=== PATIENT | female | born 2000 | race Caucasian/White ===

== ENCOUNTER 2020-05-20 16:58 | Emergency (ER) | payer OTHER, MEDICAID ==
[~2020-05-20] VITALS: Ht 157.5 cm; Wt 45.5 kg
[2020-05-20 17:10] VITALS: BP 99/56
== END 2020-05-20 18:24 | disposition home or self-care (01) ==
LOC: ER 16:59
DX: R51 Headache (principal); F17.200 Nicotine dependence, unspecified, uncomplicated; Z02.89 Encounter for other administrative examinations
CPT/HCPCS: 99281

== ENCOUNTER 2020-06-19 15:22 | Inpatient (IN) | payer MEDICAID ==
[~2020-06-19] VITALS: Ht 157.5 cm; Wt 54.5 kg
[2020-06-19 16:01] LABS: CLARITY,URINE CLOUDY (Clear); COLOR,URINE YELLOW (Yellow); GLUCOSE, URINE NEGATIVE (Neg); KETONES,URINE TRACE mg/dl (Neg); LEUKOCYTE ESTERASE ,URINE NEGATIVE (Neg); NITRITES, URINE NEGATIVE (Neg); OCCULT BLOOD,URINE NEGATIVE (Neg); PROTEIN,URINE TRACE mg/dl (Neg)
[2020-06-19 16:02] LABS: UA COLLECTION TYPE CLN CATCH MIDSTREAM; URINE HCG NEGATIVE (NEG)
[2020-06-19 16:08] LABS: MUCUS STRANDS MANY /LPF (Neg)
[2020-06-19 16:09] LABS: SQUAMOUS EPITHELIAL CELL,UR MODERATE /LPF (FEW)
[2020-06-19 16:10] LABS: BACTERIA,URINE FEW /HPF (Neg); RBC,URINE 0-2 /HPF (0-2); TRIPLE PHOSPHATE CRYST 2+ /HPF (NEGATIVE); WBC,URINE 0-4 /HPF (0-4)
[2020-06-19] MEDS ORDERED: ondansetron/PF 4mg/2ml inj IV ONE (16:20)
[2020-06-19] MEDS ORDERED: morphine 4 MG/ML inj SYRINge IV PRN (16:20)
[2020-06-19] MEDS ORDERED: normal saline 1000ML IV soln IVB ONE (16:20)
[2020-06-19 16:36] LABS: BASOPHILS # (AUTO) 0.1 X10'3 (0-0.2); BASOPHILS % (AUTO) 0.8 % (0-1); EOSINOPHILS # (AUTO) 0.2 X10'3 (0-0.9); EOSINOPHILS % (AUTO) 2.2 % (0-6); HEMATOCRIT 37.2 % (35.0-45.0); HEMOGLOBIN 12.5 g/dl (12.0-16.0); LYMPHOCYTES % (AUTO) 43.8 % (21-51); MEAN CORPUSCULAR HEMOGLOBIN 30.8 PG (27.0-31.0); MEAN CORPUSCULAR HGB CONC 33.6 g/dL (33.0-36.5); MEAN CORPUSCULAR VOLUME 91.8 FL (78-98); MEAN PLATELET VOLUME 7.2 FL (7.4-10.4); MONOCYTES # (AUTO) 0.7 X10'3 (0-0.9); MONOCYTES % (AUTO) 7.6 % (2-12); NEUTROPHILS # (AUTO) 4.1 X10'3 (1.8-7.7); NEUTROPHILS % (AUTO) 45.6 % (42-75); PLATELET COUNT 256 X10'3 (140-440); RED BLOOD COUNT 4.05 X10'6 (4.20-5.60); RED CELL DISTRIBUTION WIDTH 13.2 % (11.5-14.5)
[2020-06-19 16:48] LABS: ALANINE AMINOTRANSFERASE 39 U/L (12-78); ALBUMIN 3.4 G/DL (3.4-5.0); ALBUMIN/GLOBULIN RATIO 0.9 (1.1-1.5); ALKALINE PHOSPHATASE 74 IU/L (20-180); ANION GAP 6 (8-16); ASPARTATE AMINO TRANSFERASE 25 U/L (10-37); BILIRUBIN,TOTAL 0.4 MG/DL (0.1-1.0); BLOOD UREA NITROGEN 10 MG/DL (7-18); BUN/CREATININE RATIO 10.4 (6.6-38.0); CALCIUM 8.4 MG/DL (8.5-10.1); CHLORIDE 107 MMOL/L (99-107); CREATININE 0.96 MG/DL (0.40-0.90); LIPASE 120 U/L (73-393); POTASSIUM 4.2 MMOL/L (3.5-5.1); SODIUM 141 MMOL/L (135-145); TOTAL CARBON DIOXIDE 27.9 MMOL/L (24-32); TOTAL PROTEIN 7.2 G/DL (6.4-8.2); eGFR 74 ML/MIN
[2020-06-19 16:57] LABS: GLUCOSE 96 MG/DL (70-104)
[2020-06-19] MEDS ORDERED: NO HOME MEDS (20:58)
--- NOTE | 2020-06-19 20:58 | NUR ---
plan of car updated pt resting comfortably on her right side.
--- NOTE | 2020-06-19 22:06 | NUR ---
Pt mother called for update . pt gave permission to update her mother .pt mother to bring in her phone cord .
[2020-06-19] MEDS ORDERED: piperacillin/tazo 3.375gm/50ml 50 ML IV ONE (22:30)
[2020-06-19] MEDS ORDERED: morphine 2 MG/ML inj. syringe IV PRN ×2 (22:50)
[2020-06-19] MEDS ORDERED: ondansetron/PF 4mg/2ml inj IV PRN (22:50)
[2020-06-19] MEDS ORDERED: potassium Cl 20 mEq SR tablet PO PRN ×2 (22:50)
[2020-06-19] MEDS ORDERED: potassium CL 10mEq/100ml bag 100 ML IV PRN ×2 (22:50)
[2020-06-19] MEDS: normal saline 1000ml 1,000 ML IV SCH (23:16)
[2020-06-20 00:25] VITALS: BP 98/58
--- NOTE | 2020-06-20 00:25 | NUR ---
PATIENT ADMITTED TO ROOM 340B FROM ER FOR POSSIBLE APPENDICITIS. PLACED COMFORTABLE IN BED. VITAL SIGNS TAKEN AND RECORDED.
[2020-06-20 05:19] LABS: ALANINE AMINOTRANSFERASE 39 U/L (12-78); ALBUMIN 2.9 G/DL (3.4-5.0); ALBUMIN/GLOBULIN RATIO 0.9 (1.1-1.5); ALKALINE PHOSPHATASE 67 IU/L (20-180); ANION GAP 8 (8-16); ASPARTATE AMINO TRANSFERASE 26 U/L (10-37); BILIRUBIN,TOTAL 0.4 MG/DL (0.1-1.0); BLOOD UREA NITROGEN 8 MG/DL (7-18); BUN/CREATININE RATIO 9.5 (6.6-38.0); CALCIUM 7.9 MG/DL (8.5-10.1); CHLORIDE 108 MMOL/L (99-107); CREATININE 0.84 MG/DL (0.40-0.90); GLUCOSE 83 MG/DL (70-104); POTASSIUM 3.8 MMOL/L (3.5-5.1); SODIUM 140 MMOL/L (135-145); TOTAL CARBON DIOXIDE 23.9 MMOL/L (24-32); TOTAL PROTEIN 6.3 G/DL (6.4-8.2); eGFR 86 ML/MIN
[2020-06-20 05:31] LABS: BASOPHILS % (AUTO) 0.5 % (0-1); EOSINOPHILS # (AUTO) 0.4 X10'3 (0-0.9); EOSINOPHILS % (AUTO) 4.8 % (0-6); HEMATOCRIT 35.3 % (35.0-45.0); HEMOGLOBIN 11.8 g/dl (12.0-16.0); LYMPHOCYTES # (AUTO) 3.7 X10'3 (1.1-4.8); LYMPHOCYTES % (AUTO) 48.3 % (21-51); MEAN CORPUSCULAR HGB CONC 33.6 g/dL (33.0-36.5); MEAN CORPUSCULAR VOLUME 92.3 FL (78-98); MEAN PLATELET VOLUME 7.7 FL (7.4-10.4); MONOCYTES # (AUTO) 0.5 X10'3 (0-0.9); MONOCYTES % (AUTO) 6.8 % (2-12); NEUTROPHILS # (AUTO) 3.1 X10'3 (1.8-7.7); NEUTROPHILS % (AUTO) 39.6 % (42-75); PLATELET COUNT 209 X10'3 (140-440); RED BLOOD COUNT 3.82 X10'6 (4.20-5.60); RED CELL DISTRIBUTION WIDTH 12.9 % (11.5-14.5); WHITE BLOOD COUNT 7.8 X10'3 (4.5-11.0)
[2020-06-20] MEDS: piperacillin/tazo 3.375gm/50ml 50 ML IV SCH ×2 (05:32→14:02)
--- NOTE | 2020-06-20 06:30 | NUR ---
Problems reprioritized. Patient report given, questions answered & plan of care reviewed with AZAM LOWE.
--- NOTE | 2020-06-20 06:46 | NUR ---
Patient in room [facility]. I have received report from CHRISSY Campos and had the opportunity to ask questions and assume patient care.
[2020-06-20 08:00] VITALS: BP 106/56
[2020-06-20] MEDS ORDERED: K and/or MAG REPLACEMENT MC SCH (08:00)
[2020-06-20] MEDS: normal saline 1000ml 1,000 ML IV SCH ×2 (08:30→16:28)
[2020-06-20 11:00] VITALS: BP 108/57
--- NOTE | 2020-06-20 11:04 | NUR ---
Dr Gaytan in to see pt. new order for regular diet and MOM. Monitor pt change of condition for further intervention.
[2020-06-20] MEDS ORDERED: magnesium hydroxide 30ml (MOM) UD suspension PO ONE (11:05)
--- NOTE | 2020-06-20 13:18 | NUR ---
Pt on the phone, agitated, stating she wants to go home. Refused lunch. charge nurse spoke to pt. Discussed with pt consequences of leaving hospital AMA. Hospitalist and surgeon aware.
--- NOTE | 2020-06-20 17:58 | NUR ---
spoke to Dr Vidal and Dr Gaytan, they both want pt to have Abd/pelvic CT scan prior discharge.
--- NOTE | 2020-06-20 18:15 | NUR ---
Problems reprioritized. Patient report given, questions answered & plan of care reviewed with CHRISSY Campos. Pt signed AMA form. IV cath was removed. aware.
--- NOTE | 2020-06-20 18:25 | NUR ---
Patient in room [facility]. I have received report from AZAM RN and had the opportunity to ask questions and assume patient care. PATIENT WAS GETTING READY TO LEAVE AMA, PAPER SIGNED, AWARE AND PIV OUT ALL DONE BY AM RN.
--- NOTE | 2020-06-20 19:09 | NUR ---
Pt left the [facility] around 1830.
[2020-06-20] MEDS ORDERED: diatr meglu/diatrizoate 30ml oral sol.-(3 dose) bottle PO SCH (21:00)
== END 2020-06-20 18:00 | disposition left against medical advice (07) | DRG 254 ==
LOC: ER 15:23 → ED HOLD 22:46 → SUR 3N 06-20 00:20
PROVIDERS: ADMIT Internal Medicine; ATTEND Family Medicine
DX: K37 Unspecified appendicitis (principal); F17.200 Nicotine dependence, unspecified, uncomplicated; K52.9 Noninfective gastroenteritis and colitis, unspecified; K59.00 Constipation, unspecified; Z53.29 Procedure and treatment not carried out because of patient's decision for other reasons; Z87.442 Personal history of urinary calculi
CPT/HCPCS: 36415; 74176; 76705; 76856; 80053; 81001; 81025; 83690; 85025; 87081; 93976; G0378; J2270; J2405; J2543; J7030

== ENCOUNTER 2023-07-29 11:47 | Emergency (ER) | payer MEDICAID ==
[~2023-07-29] VITALS: Ht 154.9 cm; Wt 45.4 kg
[~2023-07-29 11:47] MED LIST: NO HOME MEDS
[2023-07-29 11:49] VITALS: BP 115/76; PULSE 79; RESP 16; TEMP 99.8; O2SAT 99
== END 2023-07-29 18:08 | disposition left against medical advice (07) ==
LOC: ER 11:48
DX: R51.9 Headache, unspecified (principal); Z53.21 Procedure and treatment not carried out due to patient leaving prior to being seen by health care provider
CPT/HCPCS: 99281